=== PATIENT | female | born 1960 | race Caucasian/White ===

== ENCOUNTER 2016-04-25 07:07 | Emergency (ER) | payer BC, OTHER ==
--- NOTE | 2016-04-25 08:53 | ED ORDER SUMMARY ---
..... Patient: KEVIN DURBIN OrderSheet [facility] VisitID: [id number] [place] [address] 55y, F Registration Date/Time: 04/25/2016 ORDER SHEET Weight: 123.8 kg (stated) Allergies: Hydrocodone GENERAL ORDERS: Chest 2V Urgent (08:34 04/25/2016 Lisette SANTANA) ([facility] 8:55 [facility]) MEDICATION ORDERS: IV FLUIDS: ORDER SHEET NOTES: [Electronically signed by Ping Joya R.N. (:04/25/2016)] [Electronically signed by Freddy Núñez MD (20:51 04/27/2016)] [Electronically locked/signed by Ping Joya R.N. (:04/25/2016)]
--- NOTE | 2016-04-25 08:53 | ED CLINICAL REPORT ---
Clinical Report - Physicians/Mid Levels [facility] [address] [place] [address] 04/25/2016 7:09 [id number] Time Seen: 08:22 Apr 25 2016. Arrived- By private vehicle. Historian- patient. CPT: ER phys charges level 3 (#[id number]). HISTORY OF PRESENT ILLNESS Chief Complaint: COUGH. 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 The illness is described as moderate. The patient has had a cough, chest discomfort, difficulty breathing, a sore throat and nasal congestion. She has had sinus pressure, sinus drainage, fever, chills and muscle aches. She has had moderate amounts of yellow, green sputum. There has been a change from baseline. No chest pain or hoarseness. She has had moderate right ear pain. (Has been taking albuterol HHN and MDI.). Similar symptoms previously: Recent medical care: Not recently seen/assessed. REVIEW OF SYSTEMS No headache, eye discomfort, nausea, vomiting or diarrhea. No abdominal pain, pedal edema, calf pain, difficulty with urination or skin rash. No enlarged lymph nodes or joint pain. Right lumbar strain with big cough . All systems otherwise negative, except as recorded above. PAST HISTORY Pneumonia. Arthritis. SURGERIES: Cholecystectomy. Fibroid. Lap band. Tubal Ligation). Medications: Progesterone Micronized Oral. Allergies: Hydrocodone. SOCIAL HISTORY Never smoker. Occasional alcohol use. History of drug use: marijuana. ADDITIONAL NOTES The nursing notes have been reviewed. PHYSICAL EXAM Vital Signs: 04/25/2016 07:19 BP: 144/85. HR: 68. RR: 20. O2 saturation: 99%. Temp: 97.9 F. Appearance: Alert. No acute distress. Eyes: Eyes normal inspection. ENT: Ears normal. Nose normal. Pharynx normal. Neck: Normal inspection. Neck supple. CVS: Normal heart rate and rhythm. Heart sounds normal. Pulses normal. Respiratory: No respiratory distress. Decreased breath sounds. Abdomen: Soft and nontender. Back: Normal inspection. Skin: Normal skin color. No rash. Extremities: Extremities exhibit normal ROM. No calf tenderness. No lower extremity edema. Neuro: Oriented X 3. No motor deficit. No sensory deficit. LABS, X-RAYS, AND EKG Chest X-ray: (No apparent infiltrate). Views: PA and lateral. Technique: good. The X-rays were independently viewed by me and interpreted contemporaneously by me. Prior films were not available for comparison. PROGRESS AND PROCEDURES Patient/family counseled. Disposition: Discharged. Condition: stable. CLINICAL IMPRESSION Acute bacterial bronchitis associated with bronchospasm. Acute and recurrent suppurative right otitis media; acute and recurrent suppurative left otitis media. No perforation of right tympanic membrane. No perforation of left tympanic membrane. INSTRUCTIONS (Continue albuterol HHN and MDI at home.). Your Current Medications: CONTINUE TAKING THE FOLLOWING MEDICATIONS: Progesterone Micronized Oral. Prescription Medications: Prednisone 20 mg: take 3 orally every day for 5 days. Dispense fifteen (15). No refills. Zithromax 250 mg tablets: take 2 orally today, followed by 1 daily for the next 4 days. No refills. Substitution is permissible. Tylenol with Codeine Liquid take 1-2 teaspoons every 4 hours as needed for pain. Dispense ninety (90) mL. No refill. (for cough) Flexeril 5 mg: take 1 orally as needed for muscle spasm or pain. Dispense fifteen (15). No refills. Substitution is permissible. Follow-up: Follow up with your doctor in one week. Call for an appointment. Understanding of the discharge instructions verbalized by patient and family. (Electronically signed by Freddy Núñez MD 04/27/2016 20:51)
--- NOTE | 2016-04-25 08:53 | ED NURSING NOTES ---
Clinical Report - Nurses [facility] [place] [address] 04/25/2016 7:09 Patient: KEVIN DURBIN TRIAGE Triage time 07:Apr 25 2016. Acuity: LEVEL 3. Chief Complaint: FEVER, CHILLS, MUSCLE ACHES, FATIGUE, HEADACHE, EYE IRRITATION, EAR PAIN, SINUS PAIN, NASAL CONGESTION, SORE THROAT, DYSPNEA, COUGH and BACK PAIN (Since Thursday). RISHI COMA SCORE: Rishi Coma Scale: 15- eyes open spontaneously (4); best verbal response- oriented x 4 (5); best motor response- obeys commands (6). --07:30 Ping Joya R.N. 07:19 04/25/16. BP: 144/85. HR: 68. RR: 20. O2 saturation: 99%. Temp: 97.9 F. Pain level now 07/28. --07:30 Ping Joya R.N. Weight: 123.8 kg stated. Height/Length: 65 inches Per Patient. BMI: 45.5. --07:30 Ping Joya R.N. Medications Progesterone Micronized Oral. --07:26 Ping Joya R.N. Allergies Hydrocodone. --07:26 Ping Joya R.N. History Arrived by private vehicle. Historian: patient. Accompanied by family. Primary physician (Dr.Catherine Capone). ( Thursday symptoms started and patient states hasn't felt improvement and was bending over and sneezed and she thinks did something to her back.). She has had a subjective low grade fever, generalized weakness, a nonproductive cough and moderate difficulty breathing. The patient has also had dyspnea on exertion. Reports muscle aches. 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 PAST MEDICAL HX: Immunizations: up-to-date. SOCIAL HX: Never smoker. Occasional alcohol use. History of drug use: marijuana. SELF HARM ASSESSMENT: A self harm assessment was performed. The patient answered "no" to the question "Have you recently felt down, depressed, or hopeless?" and "Do you have thoughts of harming or killing yourself?". FALL RISK ASSESSMENT: Fall risk assessment completed. No fall risk identified. NUTRITIONAL RISK ASSESSMENT: The nutritional risk assessment revealed no deficiencies. FUNCTIONAL ASSESSMENT: Functional assessment: no impairments noted. LEARNING NEEDS ASSESSMENT: The learning needs assessment revealed no barriers. ABUSE ASSESSMENT: Abuse assessment: (yes) The patient was asked "Do you feel safe in your home?". SKIN INTEGRITY ASSESSMENT: Skin integrity risk assessment completed. No skin integrity risk identified. --07:30 Ping Joya R.N. PROBLEMS: UTI - Urinary Tract Infection. Dizziness. Arthritis. --07: Ping Joya R.N. ADDITIONAL SURGERIES: Cholecystectomy. Fibroid. Lap band. Tubal Ligation. Wrist repair . --: Ping Joya R.N. Interventions ID and allergy band on patient. --07:30 Ping Joya R.N. PHYSICAL ASSESSMENT Ambulatory to room. ( Requested urine but pt can't void currently.). GENERAL / NEURO / PSYCH: Alert. Oriented X 4. Appears in no acute distress. HEENT: Pupils equal, round and reactive to light. RESPIRATORY: Respirations not labored. Expiratory wheezes present. CVS: Normal sinus rhythm noted. Capillary refill less than 2 seconds. Pulses within normal limits. GI / : Abdomen soft and nontender and normal bowel sounds. SKIN: Skin intact. Skin is warm and dry. Normal skin turgor. BACK: Normal inspection of the back. ( Patient states it's internal pain not palpated.). --07:32 Ping Joya R.N. NURSING PROGRESS NOTES The plan of care for this patient has been created. Pulse oximeter placed on patient. Patient gowned. Head of bed elevated (45). Reassurance given. Call light placed in reach. Side rails up x 1. Bed placed in lowest position. Brakes of bed on. --07:32 Ping Joya R.N. DISPOSITION / DISCHARGE Departure time: 09:09 Apr 25 2016. Condition at departure: improved. No learning barriers present. Discharge instructions provided and reviewed with the patient. Reviewed warnings. Reviewed medication(s). Treatments reviewed. Reviewed referrals. Patient verbalized understanding. Written instructions provided in Syriac. The patient was discharged home and accompanied by family. She left the Emergency Department ambulatory and via private vehicle. Family member driving. --09:09 Ping Joya R.N. 09:06 04/25/16. BP: 149/65. HR: 70. RR: 18. O2 saturation: 99%. Temp: 98.2 F. Pain level now 05/30. --09:09 Ping Joya R.N. Locked/Released at 04/25/2016 19:23 by Ping Joya R.N.
--- NOTE | 2016-04-25 08:53 | ED CLINICAL REPORT ---
Clinical Report - Physicians/Mid Levels [facility] [address] [place] [address] 04/25/2016 7:09 [id number] Time Seen: 08:22 Apr 25 2016. Arrived- By private vehicle. Historian- patient. CPT: ER phys charges level 3 (#[id number]). HISTORY OF PRESENT ILLNESS Chief Complaint: COUGH. 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 The illness is described as moderate. The patient has had a cough, chest discomfort, difficulty breathing, a sore throat and nasal congestion. She has had sinus pressure, sinus drainage, fever, chills and muscle aches. She has had moderate amounts of yellow, green sputum. There has been a change from baseline. No chest pain or hoarseness. She has had moderate right ear pain. (Has been taking albuterol HHN and MDI.). Similar symptoms previously: Recent medical care: Not recently seen/assessed. REVIEW OF SYSTEMS No headache, eye discomfort, nausea, vomiting or diarrhea. No abdominal pain, pedal edema, calf pain, difficulty with urination or skin rash. No enlarged lymph nodes or joint pain. Right lumbar strain with big cough . All systems otherwise negative, except as recorded above. PAST HISTORY Pneumonia. Arthritis. SURGERIES: Cholecystectomy. Fibroid. Lap band. Tubal Ligation). Medications: Progesterone Micronized Oral. Allergies: Hydrocodone. SOCIAL HISTORY Never smoker. Occasional alcohol use. History of drug use: marijuana. ADDITIONAL NOTES The nursing notes have been reviewed. PHYSICAL EXAM Vital Signs: 04/25/2016 07:19 BP: 144/85. HR: 68. RR: 20. O2 saturation: 99%. Temp: 97.9 F. Appearance: Alert. No acute distress. Eyes: Eyes normal inspection. ENT: Ears normal. Nose normal. Pharynx normal. Neck: Normal inspection. Neck supple. CVS: Normal heart rate and rhythm. Heart sounds normal. Pulses normal. Respiratory: No respiratory distress. Decreased breath sounds. Abdomen: Soft and nontender. Back: Normal inspection. Skin: Normal skin color. No rash. Extremities: Extremities exhibit normal ROM. No calf tenderness. No lower extremity edema. Neuro: Oriented X 3. No motor deficit. No sensory deficit. LABS, X-RAYS, AND EKG Chest X-ray: (No apparent infiltrate). Views: PA and lateral. Technique: good. The X-rays were independently viewed by me and interpreted contemporaneously by me. Prior films were not available for comparison. PROGRESS AND PROCEDURES Patient/family counseled. Disposition: Discharged. Condition: stable. CLINICAL IMPRESSION Acute bacterial bronchitis associated with bronchospasm. Acute and recurrent suppurative right otitis media; acute and recurrent suppurative left otitis media. No perforation of right tympanic membrane. No perforation of left tympanic membrane. INSTRUCTIONS (Continue albuterol HHN and MDI at home.). Your Current Medications: CONTINUE TAKING THE FOLLOWING MEDICATIONS: Progesterone Micronized Oral. Prescription Medications: Prednisone 20 mg: take 3 orally every day for 5 days. Dispense fifteen (15). No refills. Zithromax 250 mg tablets: take 2 orally today, followed by 1 daily for the next 4 days. No refills. Substitution is permissible. Tylenol with Codeine Liquid take 1-2 teaspoons every 4 hours as needed for pain. Dispense ninety (90) mL. No refill. (for cough) Flexeril 5 mg: take 1 orally as needed for muscle spasm or pain. Dispense fifteen (15). No refills. Substitution is permissible. Follow-up: Follow up with your doctor in one week. Call for an appointment. Understanding of the discharge instructions verbalized by patient and family. (Electronically signed by Freddy Núñez MD 04/27/2016 20:51)
--- NOTE | 2016-04-25 08:53 | ED ORDER SUMMARY ---
..... Patient: KEVIN DURBIN OrderSheet [facility] VisitID: [id number] [place] [address] 55y, F Registration Date/Time: 04/25/2016 ORDER SHEET Weight: 123.8 kg (stated) Allergies: Hydrocodone GENERAL ORDERS: Chest 2V Urgent (08:34 04/25/2016 Lisette SANTANA) ([facility] 8:55 [facility]) MEDICATION ORDERS: IV FLUIDS: ORDER SHEET NOTES: [Electronically signed by Ping Joya R.N. (:04/25/2016)] [Electronically signed by Freddy Núñez MD (20:51 04/27/2016)] [Electronically locked/signed by Ping Joya R.N. (:04/25/2016)]
--- NOTE | 2016-04-25 08:55 | DIAGNOSTIC IMAGING REPORT ---
PROCEDURE: XR CHEST 2 VIEW INDICATION: COUGH TECHNIQUE: PA and lateral views. COMPARISON: None. FINDINGS: Lungs are clear. Heart and mediastinum are normal. Thorax is normal. IMPRESSION: 1. Negative chest.
--- NOTE | 2016-04-27 20:51 | ED MAR SUMMARY ---
..... Medication Administration Record [facility] [address] [place], [place] [id number] Patient: KEVIN DURBIN Visit ID: [id number] 55y, F Weight: 123.8 kg Height/Length: 65 in BMI: 45.5 ALLERGIES: Hydrocodone
--- NOTE | 2016-04-27 20:51 | ED MED RECONCILIATION SUMMARY ---
Patient: KEVIN DURBIN Medication Reconciliation Report [facility] VisitID: [id number] [place] [address] 55y, F Registration Date/Time: 04/25/2016 Weight: 123.8 kg Height/Length: 65 in. BMI: 45.5 ALLERGIES: Hydrocodone The patient's Home Medications are listed below: CONTINUE TAKING THE FOLLOWING MEDICATIONS: Progesterone Micronized Oral The source(s) of the original Home Medication information: Not obtained. The following Medications were given to the patient in the Emergency Department: None. The following Medications were prescribed to the patient: Prednisone 20 mg: take 3 orally every day for 5 days. Dispense fifteen (15). No refills. -- Freddy Núñez MD Zithromax 250 mg tablets: take 2 orally today, followed by 1 daily for the next 4 days. No refills. Substitution is permissible. -- Freddy Núñez MD Tylenol with Codeine Liquid take 1-2 teaspoons every 4 hours as needed for pain. Dispense ninety (90) mL. No refill.(for cough) -- Freddy Núñez MD Flexeril 5 mg: take 1 orally as needed for muscle spasm or pain. Dispense fifteen (15). No refills. Substitution is permissible. -- Freddy Núñez MD
--- NOTE | 2016-04-27 20:51 | ED MAR SUMMARY ---
..... Medication Administration Record [facility] [address] [place], [place] [id number] Patient: KEVIN DURBIN Visit ID: [id number] 55y, F Weight: 123.8 kg Height/Length: 65 in BMI: 45.5 ALLERGIES: Hydrocodone
--- NOTE | 2016-04-27 20:51 | ED MED RECONCILIATION SUMMARY ---
Patient: KEVIN DURBIN Medication Reconciliation Report [facility] VisitID: [id number] [place] [address] 55y, F Registration Date/Time: 04/25/2016 Weight: 123.8 kg Height/Length: 65 in. BMI: 45.5 ALLERGIES: Hydrocodone The patient's Home Medications are listed below: CONTINUE TAKING THE FOLLOWING MEDICATIONS: Progesterone Micronized Oral The source(s) of the original Home Medication information: Not obtained. The following Medications were given to the patient in the Emergency Department: None. The following Medications were prescribed to the patient: Prednisone 20 mg: take 3 orally every day for 5 days. Dispense fifteen (15). No refills. -- Freddy Núñez MD Zithromax 250 mg tablets: take 2 orally today, followed by 1 daily for the next 4 days. No refills. Substitution is permissible. -- Freddy Núñez MD Tylenol with Codeine Liquid take 1-2 teaspoons every 4 hours as needed for pain. Dispense ninety (90) mL. No refill.(for cough) -- Freddy Núñez MD Flexeril 5 mg: take 1 orally as needed for muscle spasm or pain. Dispense fifteen (15). No refills. Substitution is permissible. -- Freddy Núñez MD
--- NOTE | 2016-04-27 20:51 | ED DISCHARGE INSTRUCTIONS ---
Patient: KEVIN DURBIN General Instructions [facility] VisitID: [id number] [place] [address] 55y, F Registration Date/Time: 04/25/2016 Acute bacterial bronchitis associated with bronchospasm. Acute and recurrent suppurative right otitis media; acute and recurrent suppurative left otitis media. No perforation of right tympanic membrane. No perforation of left tympanic membrane. INSTRUCTIONS (Continue albuterol HHN and MDI at home.). Your Current Medications: CONTINUE TAKING THE FOLLOWING MEDICATIONS: Progesterone Micronized Oral. Prescription Medications: Prednisone 20 mg: take 3 orally every day for 5 days. Dispense fifteen (15). No refills. Zithromax 250 mg tablets: take 2 orally today, followed by 1 daily for the next 4 days. No refills. Substitution is permissible. Tylenol with Codeine Liquid take 1-2 teaspoons every 4 hours as needed for pain. Dispense ninety (90) mL. No refill. (for cough) Flexeril 5 mg: take 1 orally as needed for muscle spasm or pain. Dispense fifteen (15). No refills. Substitution is permissible. Follow-up: Follow up with your doctor in one week. Call for an appointment. Understanding of the discharge instructions verbalized by patient and family. ADDITIONAL INFORMATION Middle Ear Infection (Adult) You have an infection of the middle ear (the space behind the eardrum). It can occur as a result of the common cold. This is because congestion can block the internal passage (eustachian tube) that drains fluid from the middle ear. When the middle ear fills with fluid, bacteria can grow there and cause an infection. Oral antibiotics are used to treat this illness, not ear drops. Symptoms usually start to improve within 1-2 days of treatment. Home Care: Finish all of the antibiotic medicine prescribed, even though you may feel better after the first few days. You may use acetaminophen (Tylenol) or ibuprofen (Motrin, Advil) to control pain, unless something else was prescribed. [NOTE: If you have chronic liver or kidney disease or have ever had a stomach ulcer or GI bleeding, talk with your doctor before using these medicines.] (Do not give aspirin to anyone under 18 years of age who is ill with a fever. It may cause severe liver damage.) Follow Up with your doctor or this facility in two weeks if all symptoms have not cleared, or if hearing does not return to normal within one month. Get Prompt Medical Attention if any of the following occur: Ear pain gets worse or does not improve after three days of treatment Unusual drowsiness or confusion Neck pain, stiff neck or headache Fluid or blood draining from the ear canal Fever of 100.4F (38C) or higher after 3 days of antibiotics, or as directed by your healthcare provider Convulsion (seizure) Bronchitis With Wheezing (Viral Or Bacterial: Adult) Bronchitis is an infection of the air passages. It often occurs during the common cold and is usually caused by a virus. Symptoms include cough with mucus (phlegm) and low-grade fever. If there is a lot of inflammation, air flow is restricted. The air passages may also go into spasm, especially if you are an asthmatic. This causes wheezing and difficulty breathing even in persons who do not have asthma. Bronchitis usually lasts 7-14 days. The wheezing should improve with treatment during the first week. An inhaler is often prescribed to relax the air passages and stop wheezing. Antibiotics will be prescribed if your doctor thinks there is also a secondary bacterial infection. Home Care: If symptoms are severe, rest at home for the first 2-3 days. When resuming activity, don't let yourself become overly tired. Do not smoke and avoid exposure to the smoke of others. You may use acetaminophen (Tylenol) or ibuprofen (Motrin, Advil) to control fever, unless another medicine was prescribed. [NOTE: If you have chronic liver or kidney disease or ever had a stomach ulcer or GI bleeding, talk with your doctor before using these medicines.] (Aspirin should never be used in anyone under 18 years of age who is ill with a fever. It may cause severe liver damage.) Your appetite may be poor so a light diet is fine. Avoid dehydration by drinking 6-8 glasses of fluids per day (water, soft, drinks, juices, tea, soup, etc.). Extra fluids will help loosen secretions in the lungs. [id number] cough medicines that containdextromethorphan(such as Robitussin DM) and decongestants (Actifed or Sudafed) may help relieve cough and congestion. [NOTE: Do not use decongestants if you have high blood pressure.] If you were given an inhaler, use it exactly as directed. If you need to use it more often than prescribed, your condition may be worsening. Contact your doctor or this facility. If prescribed, finish all antibiotic medicine, even if you are feeling better after only a few days. Follow Up With Your Doctor Or As Directed If You Are Not Starting To Feel Better After Three Days. [NOTE: If you are age 65 or older, or if you have chronic asthma or COPD, we recommend a pneumococcal vaccination every five years and a yearly influenza vaccination (flu shot) every . Ask your doctor about this. If you had an x-ray or EKG (electrocardiogram), it will be reviewed by a specialist. You will be notified of any new findings that may affect your care.] Get Prompt Medical Attention If Any Of The Following Occur: Increased wheezing, shortness of breath or pain with breathing Fever of 100.4F (38C) oral or higher, not better with fever medication Coughing up blood or increasing amounts of colored sputum Weakness, drowsiness, headache, facial pain, ear pain or a stiff neck Lower leg swelling, tenderness, redness or pain Cyclobenzaprine Hydrochloride Oral tablet What is this medicine? CYCLOBENZAPRINE (sye yulisa SHALA dennis jonasen) is a muscle relaxer. It is used to treat muscle pain, spasms, and stiffness. How should I use this medicine? Take this medicine by mouth with a glass of water. Follow the directions on the prescription label. If this medicine upsets your stomach, take it with food or milk. Take your medicine at regular intervals. Do not take it more often than directed. Talk to your workforce planning analyst regarding the use of this medicine in children. Special care may be needed. What side effects may I notice from receiving this medicine? Side effects that you should report to your doctor or health manager medicare marketing as soon as possible: allergic reactions like skin rash, itching or hives, swelling of the face, lips, or tongue chest pain fast heartbeat hallucinations seizures vomiting Side effects that usually do not require medical attention (report to your doctor or health manager medicare marketing if they continue or are bothersome): headache What may interact with this medicine? Do not take this medicine with any of the following medications: cisapride droperidol flecainide grepafloxacin halofantrine levomethadyl MAOIs like Carbex, Eldepryl, Marplan, Nardil, and Parnate nilotinib pimozide probucol sertindole This medicine may also interact with the following medications: abarelix alcohol contrast dyes dolasetron guanethidine medicines for cancer medicines for depression, anxiety, or psychotic disturbances medicines to treat an irregular heartbeat medicines used for sleep or numbness during surgery or procedure methadone octreotide ondansetron palonosetron phenothiazines like chlorpromazine, mesoridazine, prochlorperazine, thioridazine some medicines for infection like alfuzosin, chloroquine, clarithromycin, levofloxacin, mefloquine, pentamidine, troleandomycin tramadol vardenafil What if I miss a dose? If you miss a dose, take it as soon as you can. If it is almost time for your next dose, take only that dose. Do not take double or extra doses. Where should I keep my medicine? Keep out of the reach of children. Store at room temperature between 15 and 30 degrees C (59 and 86 degrees F). Keep container tightly closed. Throw away any unused medicine after the expiration date. What should I tell my health care provider before I take this medicine? They need to know if you have any of these conditions: heart disease, irregular heartbeat, or previous heart attack liver disease thyroid problem an unusual or allergic reaction to cyclobenzaprine, tricyclic antidepressants, lactose, other medicines, foods, dyes, or preservatives or trying to get breast-feeding What should I watch for while using this medicine? Check with your doctor or health manager medicare marketing if your condition does not improve within 1 to 3 weeks. You may get drowsy or dizzy when you first start taking the medicine or change doses. Do not drive, use machinery, or do anything that may be dangerous until you know how the medicine affects you. Stand or sit up slowly. Your mouth may get dry. Drinking water, chewing sugarless gum, or sucking on hard candy may help. You have been given the following additional information: Otitis Media, Abx Tx (Adult) Bronchitis With Wheezing (Adult) Cyclobenzaprine Hydrochloride Oral tablet (Electronically signed by Freddy Núñez MD 04/27/2016 20:51)
[2016-06-03] MEDS ORDERED: VITAMIN D-31000 UNIT PO (16:16)
[2016-06-03] MEDS ORDERED: MULTIPLE VITAMIN PO (16:16)
[2016-06-03] MEDS ORDERED: IRON325 MG PO (16:17)
[2016-06-03] MEDS ORDERED: PROGESTER TOP (16:48)
[2016-06-03] MEDS ORDERED: BIEST TOP (16:48)
[2016-06-03] MEDS ORDERED: PROGESTERONE PO (16:52)
[2016-06-03] MEDS ORDERED: PROAIR HFA IN (16:53)
== END 2016-04-25 09:30 | disposition home or self-care (01) ==
LOC: ED SRH 07:07
DX: J20.8 Acute bronchitis due to other specified organisms (principal); B96.89 Other specified bacterial agents as the cause of diseases classified elsewhere; H66.006 Acute suppurative otitis media without spontaneous rupture of ear drum, recurrent, bilateral; Z88.5 Allergy status to narcotic agent

== ENCOUNTER 2016-06-05 08:35 | Day surgery (SDC) | payer BC ==
[~2016-06-05 08:35] MED LIST: BIEST TOP; IRON325 MG PO; MULTIPLE VITAMIN PO; PROAIR HFA IN; PROGESTER TOP; PROGESTERONE PO; VITAMIN D-31000 UNIT PO
--- NOTE | 2016-06-05 12:59 | Provider's Discharge Care Plan ---
Problem, Goal, Plan Problem List 1. Rectal polyp
--- NOTE | 2016-06-05 12:59 | Provider's Discharge Care Plan ---
Problem, Goal, Plan Problem List 1. Rectal polyp
--- NOTE | 2016-06-05 13:34 | OPERATIVE REPORT ---
DATE OF SURGERY: 06/05/2016 SURGEON: Wes Sheikh MD PREOPERATIVE DIAGNOSIS: 1. Colon cancer risk POSTOPERATIVE DIAGNOSES: 1. Rectal polyp PROCEDURE PERFORMED: 1. Colonoscopy with forceps polypectomy of rectum ANESTHESIA: Total IV general. INDICATIONS: The patient is a 55-year-old woman undergoing screening colonoscopy. SURGICAL TECHNIQUE: The patient was taken to the endoscopy suite, where total IV general was administered and the patient was placed in the left lateral decubitus position. A well-lubricated colonoscope was advanced the length colon under direct vision. Immediately upon insertion of the colonoscope, there was a 3 mm polyp noted at about 5 cm from the anal verge. This was removed with a biopsy forceps. The rest of the colon was inspected starting with the cecum and ileocecal valve. There were no additional polyps or tumors seen including retroflexed view of the rectum. The patient left in good condition.
== END 2016-06-05 14:10 | disposition home or self-care (01) ==
LOC: OR SRH 08:35 → OB SRH 08:37
PROVIDERS: Surgery
PROC: 0DBP8ZX Excision of Rectum, Via Natural or Artificial Opening Endoscopic, Diagnostic (ICD-10-PCS; principal; 2016-06-05 10:45)
DX: Z12.11 Encounter for screening for malignant neoplasm of colon (principal); K62.1 Rectal polyp; Z83.71 Family history of colonic polyps; Z98.84 Bariatric surgery status

== ENCOUNTER 2016-06-23 09:53 | Outpatient (CLI) | payer BC | END 2016-06-23 23:00 | LOC: LAB SRH 09:53 | DX: Z01.818 Encounter for other preprocedural examination (principal); Z01.812 Encounter for preprocedural laboratory examination; K21.9 Gastro-esophageal reflux disease without esophagitis; M54.9 Dorsalgia, unspecified; J45.909 Unspecified asthma, uncomplicated | CPT/HCPCS: 90074; 90100; 95059 ==